=== PATIENT | female | born 1945 | race Caucasian/White ===

== ENCOUNTER 2025-03-17 20:44 | Inpatient (IN) | payer MEDICARE, OTHER, SELFPAY ==
[2025-03-17 15:58] VITALS: BP 125/76
[2025-03-17 17:00] LABS: Hematocrit 31.2 % (37.0-47.0); Hemoglobin 11.1 g/dL (12.0-16.0); Mean Corp Hgb Conc. 35.6 g/dL (33.0-37.0); Mean Corpuscular Volume 92.0 fL (81.0-99.0); Platelet Count 304 10^3/uL (130-400); Red Cell Dist. Width 15.7 % (11.5-14.5)
[2025-03-17 17:19] LABS: ALT (SGPT) 35 U/L (0-35); AST (SGOT) 41 U/L (14-36); Albumin 3.5 g/dl (3.5-5.0); Alkaline Phosphatase 91 U/L (38-126); Blood Urea Nitrogen 14 mg/dl (7-17); Calcium 9.3 mg/dl (8.4-10.2); Carbon Dioxide 24 mmol/L (22-30); Chloride 95 mmol/L (98-107); Glucose 102 mg/dl (70-99); Potassium 5.2 mmol/L (3.5-5.1); Sodium 124 mmol/L (135-145); Total Protein 7.7 g/dl (6.3-8.2); eGFR > 60.00
--- NOTE | 2025-03-17 18:12 | ED.GENMED ---
History of Present Illness
General
Chief Complaint: Seizure
Source: patient and family
Exam Limitations: none
Time Seen by Provider: 03/17/25 18:02
History of Present Illness
History of Present Illness:
80yoF with a history of atrial fibrillation, PE on Xarelto, PMR, temporal arteritis, and diverticulosis presenting with her daughters for evaluation after a possible seizure today. Patient was recently hospitalized at both [facility] and
[facility] at the end of February. She initially started with vomiting on 02/25/25 and was admitted overnight at [facility] for a UTI. She had a fall on 03/05/25 and was seen at [facility]. Imaging was negative for traumatic injuries. She was
tachycardic, hypotensive, and febrile on her arrival. Patient received IV fluids but then became volume overloaded requiring Lasix. Blood cultures were negative. She was having issues with hyponatremia during her hospitalization and sodium was
129 at time of discharge on 03/13/2025. Patient was also leukopenic during her hospital stay and methotrexate was discontinued. She was discharged to a rehab facility. Since discharge, patient has been profoundly fatigued and has been sleeping
throughout the day. She also has been having a worsening tremor. She was on her way to a cardiology appt this afternoon and daughter noticed that she was making a noise. She looked over and patient's eyes were wide open, her back was arched, and
she had a slight facial droop. She was not responding to questioning. Episode lasted <1 minute. No associated incontinence or tongue biting. She is now back to baseline and feeling better. No prior history of seizures/similar episodes. Of
note, patient's smash hand increased her Cardizem dose today from 120 mg to 180 mg.
Phy Exam
General Physical Exam
General Presentation: well appearing and no apparent distress
General Skin: warm and dry
General Habitus: normal
General Mental: alert
ENT Exam
ENT Exam: normocephalic
Cardiovascular Exam
Cardiovascular Exam: irregularly irregular and tachycardia
Pulmonary Exam
Pulmonary Exam: lungs clear, no respiratory distress, no rales, no crackles, no rhonchi and no wheezing
Neurological Exam
Neurological Exam: alert
[place] Coma Scale
Eye Opening: Spontaneous
Verbal Response: Oriented
Motor Response: Obeys Commands
GCS Total Score: 15
Skin Exam
Skin Exam: normal color and warm/dry
Psychiatric Exam
Psychiatric Exam: normal mood/affect
Course
Orders/Labs/Results
Orders:
Orders
03/17/25 Dinner
Regular
At Your Request: Limited, [employer] Required
Fluid Restriction: 1200 mL/day (40 oz)
03/17/25 16:16
Electrocardiogram (*1) Urgent
Reason for Study: Other
Other Reason for Exam: change in mental status
CT Head W/o Iv Contrast Urgent
Comment:
Reason For Exam: unresponsive
03/17/25 16:17
EKG- Treatment ONCE
03/17/25 16:20
Complete Blood Count/With Diff Urgent
Comprehensive Metabolic Panel Urgent
Magnesium Urgent
Comment: ADD ON
Manual Differential Urgent
Serum Osmolality Urgent
Comment: ADD ON
03/17/25 18:45
Cardiac Monitoring- Treatment ONCE
03/17/25 19:14
Osmolality, Random Urine Urgent
Date Specimen was Collected: 03/17/25
Time Specimen was Collected: 19:07
Troponin I Urgent
Urinalysis Reflex To Culture Urgent
Date Specimen was Collected: 03/17/25
Time Specimen was Collected: 19:07
Urine Microscopic Reflex Cult Urgent
Urine Sodium Urgent
Date Specimen was Collected: 03/17/25
Time Specimen was Collected: 19:07
03/17/25 20:15
Add On- LAB Urgent
Tests Added?: serum osmo
Add On- LAB Urgent
Tests Added?: urine sodium, urine osmo
03/17/25 20:20
Admit/Transfer Patient As Directed
Co-Sign Provider:
Level of Care: Inpatient admission
Assign to:: Telemetry
Physician / Group: Garfield De La Paz
Diagnosis: hyponatremia
Reason for Telemetry: Arrhythmia
Date to Stop Telemetry: 03/20/25
Time to Stop Telemetry: 11:00
Reason for Hospitalization: hyponatremia
Expected length of stay greater than two midnights?: Yes
ELOS- Estimated Length of Stay in days: 3
I certify the patient meets the requirements for IP care: Yes
PRN Pain Medication Management As Directed
May give lesser potent ordered pain med per pt: Yes
preference::
Protocol:: Medication orders for pain may be administered in a
manner that supports deferring to patient preference
when the pt is:
- Requesting an ordered lesser potent pain medication.
Least to most potent pain medications are defined
as: acetaminophen < NSAID < tramadol < opioids
(morphine, oxycodone, hydromorphone).
- Requesting a lesser dose of the same medication IF
ORDERED.
- Requesting a less intrusive route of administration
if both routes are prescribed by the provider (PO <
IV).
03/17/25 20:23
Code Status As Directed
Resuscitation Status: Full Code
03/17/25 20:31
Diltiazem Sustained Release [Cardizem Sr] 120 mg PO NOW STA
MethylPREDNISolone PF [Solu-Medrol Pf] 40 mg IV NOW STA
CR Chest - 2 Views Urgent
Comment:
Reason For Exam: reported abnormalty prior hospitalization
03/17/25 20:38
Add On- LAB Urgent
Tests Added?: mag
03/17/25 20:45
0.9% Sodium Chloride 1000 ml [Nss] 1,000 ml IV 60 mls/hr
03/17/25 21:16
Acetaminophen [Tylenol] 650 mg PO Q4HPRN PRN
03/17/25 21:16
CARDIOLOGY CONSULT Routine
Consulting Provider: Peyton Gomez
Was physician already notified: Yes
NEPHROLOGY CONSULT Routine
Consulting Provider: Lupis Enriquez
Was physician already notified: Yes
NEUROLOGY CONSULT Routine
Consulting Provider: Shahid Ross
Was physician already notified: Yes
EEG Routine Routine
Reason for Exam: seizure like activity
MRI Brain [MR Brain Without Contrast] Routine
Comment:
Reason For Exam: change in mental status/seizure activty
Recent pill cam endoscopy?: No
Activity As Directed
Activity Level: As Tolerated
Intake/ Output As Directed
Frequency: Per unit guidelines
Vital Signs As Directed
Frequency: Per unit guidelines
Weight As Directed
Frequency: Once
Comment: on admission
PT Consult [Pt Eval And Treat] Routine
Activity Level: As Tolerated
03/18/25 06:00
Basic Metabolic Panel IN AM
Complete Blood Count/No Diff IN AM
03/18/25 08:00
Diltiazem Extended Release [Cardizem Cd] 180 mg PO DAILY
FOLic ACID [Folvite] 1 mg PO DAILY
Prednisone [Deltasone] 20 mg PO DAILY
Rivaroxaban [Xarelto] 10 mg PO DAILY
03/20/25 08:00
Prednisone [Deltasone] 2.5 mg PO DAILY
03/20/25 11:00
DC Protocol for Telemetry ONCE
Abnormal Lab Results
03/17/25 03/17/25
16:20 19:14
RBC 3.39 L 10^6/uL
(4.20-5.40)
Hgb 11.1 L g/dL
(12.0-16.0)
Hct 31.2 L %
(37.0-47.0)
MCH 32.7 H pg
(27.0-31.0)
RDW 15.7 H %
(11.5-14.5)
Segmented Neutrophils 41 L %
(42-75)
Sodium 124 L mmol/L
(135-145)
Potassium 5.2 H mmol/L
(3.5-5.1)
Chloride 95 L mmol/L
(98-107)
Glucose 102 H mg/dl
(70-99)
Serum Osmolality 266 L mOsm/kg
(275-300)
AST 41 H U/L
(14-36)
Ur Occult Blood Reflex 1+ A
(Negative)
Urine RBC 3-6 A /HPF
(0-2)
Urine Bacteria (Reflex) Few A
(Negative)
Urine Osmolality 214 L mOsm/kg
(300-900)
Urine Albumin (Reflex) 2+ A
(Neg - Trace)
03/17/25 16:20
03/17/25 16:20
Vital Signs
Initial and Last Documented VS:
Initial Vital Signs
Temp Pulse Resp BP Pulse Ox
99.0 F 108 16 125/76 97
03/17/25 15:58 03/17/25 15:58 03/17/25 15:58 03/17/25 15:58 03/17/25 15:58
Last Documented Vital Signs
Temp Pulse Resp BP Pulse Ox
98.1 F 105 18 139/93 96
03/17/25 21:15 03/17/25 21:15 03/17/25 21:15 03/17/25 21:15 03/17/25 21:15
MDM/Problems Addressed
Differential Diagnosis Includes:
80yoF presenting after a possible seizure this afternoon. Episode lasted 1 minute with unresponsiveness and back arched. Now back to baseline. C/o fatigue. Multiple recent hospitalizations. HR 108 on arrival. Remainder of vitals stable. She is well
appearing in no distress. She is awake, alert, with a GCS of 15. Differential diagnosis includes but is not limited to: Seizure, syncope, UTI
Workup initiated in triage. Sodium is 124. Family does report that she had issues with hyponatremia during her recent hospitalization at [place]. Sodium was reportedly 129 4 days ago. Renal function stable. CT head negative for acute findings.
EKG shows afib with RVR. HRs in the 110s during exam, no indication for IV rate control at this time. UA and urine studies added. Will hold off on IV fluids as she required IV diuresis during her recent hospitalization. Will admit for neurology
evaluation and further management.
*Pulse Oximetry
SaO2: 97
Oxygen Mode of Delivery: Room air
Patient hypoxic: no (97%)
*EKG
Interpreted by ED Provider?: Yes
EKG Intrepretation Date: 03/17/25
Heart Rate: 115
Rate: tachycardiac
Rhythm: a-fib
[place]: left axis deviation
Interval: normal interval
QRS Pattern: normal QRS
Ischemia: no ischemia
*Critical Care Note
Total Time (30-74mins, 75-104mins- exclusive of procedures): Not Applicable
ED Attending Note
-
Portions of this chart may have been created with voice recognition software.� Occasional wrong word or��sound alike� substitutions may have occurred due to the inherent limitations of voice recognition software.
Discharge Plan
Departure
Patient Disposition: Admit
Date of Disposition: 03/17/25
Time of Disposition: 19:17
Presentation/result/management discussed w/ accepting MD/DO: Hospitalist
Discharge Problem:
Seizure-like activity, Hyponatremia
Interventions
Interventions:
*Risk Screen - Suicide Last Done: 03/17/25 16:01
*General Assessment Last Done: 03/17/25 16:01
*Neglect/Abuse Screening Last Done: 03/17/25 19:41
*ED COVID-19 Vaccine History Last Done: 03/17/25 16:01
*Nursing Disposition Last Done: 03/17/25 20:49
ED- Cardiac Assessment Last Done: 03/17/25 19:41
ED- Neurological Assessment Last Done: 03/17/25 19:41
ED- Pulmonary Assessment Last Done: 03/17/25 19:41
Discharge Date and Time
Discharge Date/Time: 03/17/25 21:38
[2025-03-17 19:02] VITALS: BP 144/88
[2025-03-17 19:19] LABS: Absolute Neutrophils -Man Diff 2.2 10^3/uL (1.4-6.5); Platelets Checked Yes
[2025-03-17 19:20] LABS: Normal RBC Morphology Yes; Total Cells Counted 100
--- NOTE | 2025-03-17 19:26 | HPS.HSE ---
Family Physician
-
Family Physician: Kevin Jones
Chief Complaint
-
Loss of consciousness and seizure-like activity
History of Present Illness
86-year-old female with history of A-fib and anticoagulated on Xarelto, hypertension, polymyalgia rheumatica, temporal arthritis on chronic methotrexate and steroid, few days ago discharged from the [facility] to rehab, today one of her
daughter picked her up from the rehab to take her to her pharmacy associate appointment on the way she made a noise in the daughter when she looked at her she was stiff and her eyes rolling backward and her mouth was open drifted to the left and some
foaming coming out but she did not with nurse any tonic-clonic activities. This is last couple of minutes she got out of it that she was back to normal and happened again. According to the daughter immediately she was not confused and she was
oriented x 3 after the events.
Patient has no recollection of the event but did not experience any chest pain or shortness of breath or nausea or vomiting or palpitation admit her vision or blurry before the event.
No weakness or numbness in extremity ,
According to the patient and the daughter she has not been sleeping at all lately and she is very weak loudly and lethargic and according to one of the daughter a few days ago while living talking to her she look like dozed off and they were not
sure if she passed out but she was able to sleep. She has been taking melatonin without any relief.
In the ER she was in A-fib with mild RVR, cardiology increased her dose of Cardizem from 120-180 earlier today. Also according to the daughter she is having shuffling gait and tremor and cogwheel rigidity were noticed.
She was admitted recently as mentioned in [place] after she had a mechanical fall and back pain also for methotrexate toxicity and she did not get her methotrexate last couple of weeks.
She is hyponatremic her sodium was 124 but according to the daughter the whole time she was in the hospital her sodium was around 125, she got fluids and followed by [facility] as she became like fluid overloaded and her sodium improved to 126 and 129 at
the time of discharge. She had a urine osmolarity over there was 495 and her serum osmolarity was 270. She had a chest x-ray and CAT scan which showed multiple nodules in the lung including some motion was cavitating and around 2.2 cm x 2.2 with
mediastinal lymphadenopathy overall can concerning for malignancy and SIADH.
Patient is daughter have portal all of these were reviewed by me personally..
Medical History
Past Medical History
Past Medical History: Reports Other
Additional Past Medical History:
Past medical history:
A-fib
Hypertension tension
Polymyalgia rheumatica
Temporal arteritis
Chronic steroid-dependent
Peripheral neuropathy
Surgical history:
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
Social history: Lives independently alone until recent hospitalization few days ago she was discharged to rehab, no smoking she quit when she was 28 while occasionally drinks alcohol.
Family history: Reviewed and noncontributory
Past Surgical History: Reports Other
Social History
Unable to obtain full social history at this time due to: Other
Family History
Family History: Other
Allergies / Home Medications
Allergies reflects when Allergies were last updated in [facility].
Home Medications with original date entered in [facility]
Allergy/Medication List:
Allergies
Allergy/AdvReac Type Severity Reaction Status Date / Time
cortisone Allergy Unknown Verified 03/17/25 16:14
meperidine (From Demerol) Allergy Unknown Verified 03/17/25 16:14
Allergies
Allergy/AdvReac Type Severity Reaction Status Date / Time
cortisone Allergy Unknown Verified 03/17/25 16:14
meperidine (From Demerol) Allergy Unknown Verified 03/17/25 16:14
Home Medications
acetaminophen 650 mg tablet,extended release 650 mg PO Q12H PRN pain 03/17/25
calcium 500 mg (as carbonate)-vitamin D3 3.125 mcg (125 unit) tablet 1 tab PO BID 03/17/25
diltiazem HCl 120 mg tablet,extended release 24 hr 120 mg PO DAILY 03/17/25
folic acid 1 mg tablet 1 mg PO DAILY 03/17/25
furosemide 20 mg tablet 20 mg PO DAILY 03/17/25
gabapentin 100 mg capsule 100 mg PO BID 03/17/25
methotrexate sodium (PF) 25 mg/mL injection solution 25 mg SC WEEKLY 03/17/25
lsledthtqttq-Jm-sgfj-minerals 18 mg-0.4 mg tablet 1 tab PO DAILY 03/17/25
prednisone 2.5 mg tablet 2.5 mg PO DAILY 03/17/25
rivaroxaban 10 mg tablet (Xarelto) 10 mg PO DAILY 03/17/25
Review of Systems
-
A 12 point ROS was completed and negative except as noted: Yes
Physical Exam
Vital Signs
Vital Signs
Temp Pulse Resp BP Pulse Ox
99.0 F 108 16 125/76 97
03/17/25 15:58 03/17/25 15:58 03/17/25 15:58 03/17/25 15:58 03/17/25 18:12
Physical exam:
General: Tired looking but awake, lethargic but oriented x3, not in distress and holds appropriate conversation.
HEENT: No active discharge, ecchymosis or bruising, moist lips, tongue and mucous membrane.
Eyes: No discharge or red conjunctiva, no nystagmus, pupils are reactive and equal
Neck:Supple, no JVD no bruit no goiter.
Respiratory: Normal AP contour and diameter, normal chest wall movement, normal respiratory effort, no respiratory distress,
Lungs: Good air entry bilaterally, no wheezing or rhonchi, no rales or crackles
Heart: S1, S2 irregular irregular, tachycardic, no added sound.
Gastrointestinal: Positive bowel sounds, soft, nontender, no guarding or rigidity or organomegaly
Musculoskeletal: Cogwheel rigidity appreciated, no chest wall abnormality or tenderness. All joints and extremities have good range of motion of both shoulders because of chronic pain and arthritis,, no muscle tenderness or any joint swelling or
tenderness.
Extremities: No pitting edema, good peripheral pulses, good range of motion
Skin: Warm and dry, no ulceration, normal color.
Neurological: Upper extremities fine tremor appreciated, cogwheel rigidity of both arm appreciated awake, oriented x3, speech clear and comprehensive, good muscle tone, moves extremities freely
Psychiatric: Normal mood, normal thought and judgment, normal affect,
Physical Exam
General: Other
Laboratory Results
-
03/17/25 16:20
03/17/25 16:20
Laboratory Results
Total Bilirubin 0.8 mg/dl (0.2-1.3) 03/17/25 16:20
AST 41 U/L (14-36) H 03/17/25 16:20
ALT 35 U/L (0-35) 03/17/25 16:20
Alkaline Phosphatase 91 U/L (38-126) 03/17/25 16:20
CT brain: Showed no acute abnormalities
Extensive workup done in the last few days and [facility] reviewed by me as above in HPI
Data Reviewed
-
CT Scan: Image Personally Visualized and interpreted and Discussed with Patient
Lab Data: Labs Reviewed by me and Discussed with Patient
Old Records: Reviewed
Impression/Plan
-
IMPRESSION:
86-year-old female with history of A-fib, brought to the hospital per recommendation of the funds development director today after had couple episode of loss of consciousness and some body stiffening but no tonic-clonic activity witnessed by daughter. Seizure
can be a possibility while tacky bradycardia arrhythmia with A-fib need to be considered regarding cerebral hypoperfusion, also she is hyponatremic sodium is 124 but she has been low around 125-129 lately.
Loss of consciousness and seizure-like activity:
- Seizure need to be considered but she was not postictal she is right away woke up and back to her baseline, therefore cardiac arrhythmia especially with known history of A-fib and she was mildly tachycardic need to be consider.
-For now seizure precaution
- Cardiac monitoring
- Cardiology and neurology consult
- Get EEG and MRI of brain
- May need to obtain records from [place] including recent echo
A-fib with RVR:
- Possibly related to dehydration as she looks dry and dehydrated.
- IV fluid cautiously with normal saline around 60 mL/h
- She is on Cardizem 120 daily and her pharmacy associate increase it to 180 but will give another dose of 120 now to better control the heart rate is running around 1 teens.
- Check TSH
- Potassium was 5.3 but likely related to dehydration and volume contraction.
- Recheck labs including magnesium
- Continue Xarelto she is on 10 mg
Hyponatremia:
- Skin is somewhat chronic but we do not have any record better record her daughter have on patient's portal always sodium has been 125-129.
- Medication could be a possibility including diuretic, benzodiazepine and methotrexate
- While my main concern and SIADH from these pulmonary lesion including some of them is large around 2.2 cm can concerning for malignancy as explained to the patient daughter in detail especially with lymphadenopathy.
Patient have her own oncologist in outpatient they do not come here
- We may need to get records of chest CAT scan which were done few days ago
- For now she looks dry and dehydrated we will give her some IV fluid while we recheck in urine and sodium, if not improving then may consider fluid restriction further especially with concern of SIADH and high urine osmolarity and low serum
osmolarity and having an as mentioned above his urine was 495 and serum osmolality was 270.
Hold Lasix for now
Multiple pulmonary lesion and nodule:
- As discussed with the daughter, concerning for malignancy specially with lymphadenopathy, she is a former smoker but quit many years ago when she was 28
- They already followed up with oncologist today as an outpatient no plan to repeated
Chronic steroid-dependent:
- On low-dose of prednisone 25 mg for quite some time would like to give her higher doses for couple a day as a stressor doses for now give a dose of Solu-Medrol 40 then we will increase her prednisone to 20 starting tomorrow for couple of days then
back to her 2.5
Temporal arteritis:
- Chronic she is on methotrexate and prednisone as above methotrexate been on hold for the last couple of weeks.
Concern for Parkinson disease:
- Patient experiencing tremor, shuffling gait and has cogwheel rigidity
- Neurology consult
Hyperkalemia:
- Potassium 5.3, possibly related to dehydration as she is not on any medication increasing potassium.
IV fluid
Recheck
All discussed with the patient and the 2 daughters at the bedside in detail and expressed understanding all the question answered
CODE STATUS full code
DVT prophylaxis Xarelto
Patient's records here as well as navigating all reviewed by me personally
[2025-03-17 19:38] LABS: Urine Character Clear (Clear)
[2025-03-17 19:53] LABS: Urine Squamous Cell 0-2 /LPF (Few)
[2025-03-17 19:54] LABS: Urine White Cell 0-2 /HPF (0-5)
[2025-03-17 20:02] LABS: Troponin I < 0.012 ng/ml
[2025-03-17 20:57] LABS: Magnesium 1.9 mg/dl (1.6-2.3)
[2025-03-17 21:15] VITALS: BP 139/93; BMI 22.4
[2025-03-17] MEDS: SOLU-MEDROL PF 40 MG IV (22:08)
[2025-03-17] MEDS: NSS 1000 IV (22:08)
[2025-03-17] MEDS: XANAX 0.25 MG PO (22:11)
[2025-03-17] MEDS: CARDIZEM SR 120 MG PO (22:20)
[2025-03-17 22:28] VITALS: BMI 22.4
[2025-03-17 23:00] VITALS: BP 150/80
[2025-03-18 03:00] VITALS: BP 141/72
[2025-03-18 07:13] VITALS: BP 114/66
--- NOTE | 2025-03-18 07:35 | CON.CAR ---
Addendum entered and electronically signed by Alva Bates DO 03/18/25 18:57:
I saw and examined the patient.
The Barrel Lathe Operator Outside's note was reviewed and I agree with the note.
Comment: Patient was seen and examined with 2 daughters present. Agree with HPI and plan as documented in cardiac PA's note. Patient is an 80-year-old female with past medical history significant for paroxysmal atrial fibrillation (~3 years) who
follows with a member of the legislative council Dr. Drew at [facility] and a Hypercoagulable state with several mutations (unknown)on chronic anticoagulation on Xarelto and remote history of pulmonary embolism. She states over a year ago she had recurrent significant
nosebleeds and was seen by ENT. Discussions between ENT, her senior business process analyst and member of the legislative council led to the reduction of Xarelto from 20 mg to 10 mg daily. Patient and family think that at the time of this reduction she was in sinus rhythm. She has no
history of stroke/TIA. She has no history of known coronary artery disease or heart failure. 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 She also has polymyalgia rheumatica,
temporal arteritis on chronic methotrexate and steroids who was recently admitted to [facility] for mechanical fall and back pain. She was hyponatremia (125-129) and concern for methotrexate toxicity. She was discharged to rehab.
Patient and her daughter were on their way to her outpatient cardiology appointment when her daughter heard a noise and looked over and saw her mother stiff with back arched and eyes rolling to one side. There was questionable facial droop and
foaming from the mouth. There was no obvious tonic-clonic seizure activity. Patient was unresponsive for several minutes then went back to baseline. Patient had a second episode once again witnessed by daughter. They did go to outpatient
cardiology office and from there to [facility] ED. In the emergency room sodium found to be 124; they deny that she follows with an outpatient authorization specialist. She was also found to be in atrial fibrillation with accelerated ventricular
response. She was given an extra 120 mg of Cardizem p.o. in ED. Troponin was undetectable. Chest x-ray showed small left upper lobe opacity could not exclude pneumonia and tiny bilateral pleural effusions. She was given stress dose of steroids.
GEN: No distress, awake, Ox3
HEENT: mmm, MAKAH
LUNGS: CTA, no wheezes/rales. Increased thoracic kyphosis
CV: Irregularly irregular. Positive S1-S2 2/6 SM
ABD: soft, BS+, NT/ND
EXT: No edema
Plan:
PAF currently in rate controlled atrial fibrillation
- Patient is asymptomatic and has at least a several year history of PAF
- Will continue rate control strategy at this time
- Continue Cardizem CD 180 mg once daily
- We discussed anticoagulation for stroke risk reduction in the setting of PAF as well as how it plays into her hypercoagulable state and prior history of nosebleeds. Through shared decision making patient is agreeable to increasing Xarelto to 20
mg once daily.
Unresponsiveness in the setting of hyponatremia and concern for seizure
- Neurology consulted. MRI of the brain without acute stroke. EEG planned
- Nephrology consulted; currently on fluid restriction
History of hypercoagulable state with several genetic mutations and prior history of DVT/PE. Patient has an outpatient senior business process analyst. Continue oral anticoagulation without interruption.
Records from patient's outpatient member of the legislative council have been requested
Original Note:
Consultation
Consultation Request
Date/Time Consultation Requested: 03/18/2025
Date/Time Consultation Performed:
Requesting Provider: Dr. De La Paz
Performing Provider: Viv De Los Santos PA-C for Dr. Bates
Reason for Consultation: Atrial fibrillation, LOC
Medical History
-
History of Present Illness:
Patient is an 80-year-old female with past medical history significant for paroxysmal atrial fibrillation (unknown chronicity), chronic anticoagulation on Xarelto, hypertension, polymyalgia rheumatica, temporal arteritis on chronic methotrexate and
steroids who was recently admitted to [facility] for mechanical fall and back pain. She was hyponatremia (125-129) and concern for methotrexate toxicity which has been on hold. She was discharged to rehab. Patient and her daughter
were on their way to her outpatient cardiology appointment when her daughter heard a noise and looked over and saw her mother stiff with back arched and eyes rolling to one side. There was questionable facial droop and foaming from the mouth.
There was no obvious tonic-clonic seizure activity. Patient was unresponsive for several minutes then went back to baseline. Patient had a second episode once again witnessed by daughter. According to daughter patient has not been sleeping well
and has been getting increasingly weaker and lethargic. They did go to outpatient cardiology office who increased diltiazem from 120 mg to 180 mg given her heart rates were not adequately controlled in atrial fibrillation but patient has not
increased dose given she came to the hospital.
On presentation to [facility] patient found to be in atrial fibrillation with accelerated ventricular response. She was given an extra 120 mg of Cardizem p.o. in ED. potassium was found to be 5.2 with sodium of 124. Troponin was undetectable. Chest
x-ray showed small left upper lobe opacity could not exclude pneumonia and tiny bilateral pleural effusions. She was given stress dose of steroids.
PMH:
Paroxysmal atrial fibrillation
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
Mitral regurgitation
PVCs/PACs
Hypertension
Polymyalgia rheumatica
Temporal arteritis September 2017
Chronic steroid-dependent
Peripheral neuropathy
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
Lung nodules
Past Medical History
Past Medical History: Other (See HPI)
Past Surgical History: Other (Left side nephrectomy (donated to her son))
Social History
Tobacco: Former Smoker (remote history, quit in her 30's)
Alcohol: Occasional
Drug: None
Living: Alone (Lives independently until recently when she was hospitalized and discharged to rehab)
Family History
Family History: Cancer (mother) and Hypertension
Allergies / Home Medications
Allergy/AdvReac Type Severity Reaction Status Date / Time
cortisone Allergy Unknown Verified 03/17/25 16:14
meperidine (From Demerol) Allergy Unknown Verified 03/17/25 16:14
�Medication �Instructions �Recorded �Confirmed �Type
acetaminophen 650 mg 650 mg PO Q12H PRN pain 03/17/25 03/17/25 History
tablet,extended release
calcium 500 mg (as 1 tab PO BID Supplement 03/17/25 03/17/25 History
carbonate)-vitamin D3 3.125 mcg
(125 unit) tablet
diltiazem HCl 120 mg 120 mg PO DAILY Heart 03/17/25 03/17/25 History
tablet,extended release 24 hr Disease/Condition
folic acid 1 mg tablet 1 mg PO DAILY Supplement 03/17/25 03/17/25 History
furosemide 20 mg tablet 20 mg PO DAILY Fluid 03/17/25 03/17/25 History
Retention/Swelling
gabapentin 100 mg capsule 100 mg PO BID neuropathic pain 03/17/25 03/17/25 History
methotrexate sodium (PF) 25 mg/mL 25 mg SC WEEKLY chemo 03/17/25 03/17/25 History
injection solution
bgznvszdmfsl-My-ghwe-minerals 18 1 tab PO DAILY Supplement 03/17/25 03/17/25 History
mg-0.4 mg tablet
prednisone 2.5 mg tablet 2.5 mg PO DAILY inflammation 03/17/25 03/17/25 History
rivaroxaban 10 mg tablet (Xarelto) 10 mg PO DAILY Blood Clot 03/17/25 03/17/25 History
Prevention/Tx
Review of Systems
-
History Source: Patient
All other systems: Negative unless noted
Physical Exam
Vital Signs
Temp Pulse Resp BP Pulse Ox
98.3 F 97 20 141/72 97
03/18/25 03:00 03/18/25 03:00 03/18/25 03:00 03/18/25 03:00 03/18/25 03:00
GEN: No distress, awake, Ox3
HEENT: supple, anicteric, mmm
LUNGS: CTA, no wheezes/rales
CV: Reg, S1/S2, no murmur, rub or gallop
ABD: soft, BS+, NT/ND
EXT: No edema clubbing or cyanosis
NEURO: Gross non-focal
SKIN: No rash, warm, dry, pink
Lab Results
Troponin I < 0.012 ng/ml 03/17/25 19:14
Impression / Plan
-
Family Physician: Kevin Jones
Grid Inspector: Stanley Drew, [facility]
Impression:
Presented 03/17/2025 with episodes of unresponsiveness/loss of consciousness
Possible seizure
Paroxysmal atrial fibrillation
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
Mitral regurgitation
PVCs/PACs
Hypertension
Polymyalgia rheumatica
Temporal arteritis September 2017
Chronic steroid-dependent
Peripheral neuropathy
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
Lung nodules
Echo November 2023 ([facility]): Normal ejection fraction with mild MR and TR.
Echo 03/08/2025 ([facility]): EF 70 to 75%, hyperdynamic LV systolic function with out segmental regional wall motion abnormalities. Moderate MR, mild TR with PAP 27 mmHg.
Carotid duplex November 2024 with mild disease bilaterally
Outpatient monitor 11/2024: sinus rhythm with PACs (2.74%), 4 beat run of SVT. No A-fib seen
Plan:
Presented 03/17/2025 with witnessed episodes of unresponsiveness/loss of consciousness in setting of hyponatremia concerning for seizure versus arrhythmia versus stroke
- MRI and EEG have been ordered and neurology following.
Paroxysmal atrial fibrillation with accelerated ventricular response.
- Patient did see her outpatient member of the legislative council 03/17/2025 (same day as admission) with increase of diltiazem to 180 mg for attempt at rate control as she was found to be in atrial fibrillation with PVCs at that office visit on my personal review of
EKG in his office. However patient was admitted prior to increase in dose. She did receive an extra 120 mg in the ED.
-Per review of telemetry patient remains in atrial fibrillation with occasional accelerated ventricular response. Occasional PVCs and one 3 beat run of NSVT. Attempt rate control with 180 mg (dose increased 03/18). Can uptitrate as blood pressure
allows if heart rate remains poorly controlled
-Continue to monitor on telemetry to exclude additional arrhythmias and trend heart rate with increase diltiazem.
- Hold on echocardiogram as patient had echo 03/08/2025 which showed hyperdynamic LV with moderate MR.
- Patient on Xarelto 10 mg as outpatient. She has history of DVT and PE. Given patient now in atrial fibrillation would increase to A-fib dosing to reduce risk of cardioembolic event. Creatinine clearance of 71 mL/min. Proper dosing would be 20
mg daily Hemoglobin 11.1 on admission.
Patient has had recent hyponatremia (125-129) while at outside hospital. NA 124 on admission to [facility], repeat pending with ongoing attempts at correction. Unclear if this could be contributing to possible seizure activity
Chronic heart failure with preserved ejection fraction. Patient does not appear to be volume overloaded on examination. Lasix currently on hold.
Outpatient cardiology records received from Dr. Odin Drew and reviewed with above history reflecting review
HPI 03/18/2025:
Patient is an 80-year-old female with past medical history significant for paroxysmal atrial fibrillation (unknown chronicity), chronic anticoagulation on Xarelto, hypertension, polymyalgia rheumatica, temporal arteritis on chronic methotrexate and
steroids who was recently admitted to [facility] for mechanical fall and back pain. She was hyponatremia (125-129) and concern for methotrexate toxicity which has been on hold. She was discharged to rehab. Patient and her daughter
were on their way to her outpatient cardiology appointment when her daughter heard a noise and looked over and saw her mother stiff with back arched and eyes rolling to one side. There was questionable facial droop and foaming from the mouth.
There was no obvious tonic-clonic seizure activity. Patient was unresponsive for several minutes then went back to baseline. Patient had a second episode once again witnessed by daughter. According to daughter patient has not been sleeping well
and has been getting increasingly weaker and lethargic. They did go to outpatient cardiology office who increased diltiazem from 120 mg to 180 mg given her heart rates were not adequately controlled in atrial fibrillation but patient has not
increased dose given she came to the hospital.
On presentation to [facility] patient found to be in atrial fibrillation with accelerated ventricular response. She was given an extra 120 mg of Cardizem p.o. in ED. potassium was found to be 5.2 with sodium of 124. Troponin was undetectable. Chest
x-ray showed small left upper lobe opacity could not exclude pneumonia and tiny bilateral pleural effusions. She was given stress dose of steroids.
Data Reviewed
-
EKG: Report Reviewed by me, Discussed with Physician, Discussed with Nurse and Discussed with Patient
Radiology: Report Reviewed by me, Discussed with Physician, Discussed with Nurse and Discussed with Patient
Labs: Labs Reviewed by me, Discussed with Physician, Discussed with Nurse and Discussed with Patient
Old Records: Reviewed
[2025-03-18] MEDS: CARDIZEM CD 180 MG PO (07:51)
[2025-03-18] MEDS: XARELTO 10 MG PO ×2 (07:51→17:12)
[2025-03-18] MEDS: DELTASONE 20 MG PO (07:51)
[2025-03-18] MEDS: FOLVITE 1 MG PO (07:51)
--- NOTE | 2025-03-18 08:32 | CON.NEURO4 ---
Addendum entered and electronically signed by Shahid Ross MD 03/18/25 10:04:
Studies reviewed.
I have personally examined the patient. I reviewed and agree with the NIGHT SHIFT MANAGER's Note.
My addenda:
Awake, alert, interactive. No acute distress.
Speech intact.
Follows 2-step requests w/o difficulty. No tremor.
Extra-ocular movements grossly intact.
Facial movements full and symmetric. Hearing intact to normal conversational volume.
Normal UE movements bilaterally.
Neck: full ROM.
Chest: no dyspnea
Heart: no JVD
Ext: (-) Clubbing, (-) Cyanosis, (-) Edema
IMPRESSIONS/RECOMMENDATIONS:
Abrupt onset of generalized tonic-clonic seizure most likely provoked by hyponatremia, potentially also by hypotension
If the patient develops a second event while not hyponatremic, would initiate antiseizure medication
Patient's voice is hypophonic and the patient is experiencing tremor. Unclear if this represents an unmasked parkinsonism or other primary neurological disorder
EEG and MRI of brain with contrast are pending
D/W patient
Will continue to follow as needed.
Original Note:
Consultation - Neurology 4
-
CONSULTING PHYSICIAN: Shahid Ross MD
REFERRING PHYSICIAN: Hospitalists/GABINO Santana
DICTATED BY: GABINO Alvarez
DATE/TIME OF REQUEST: 03/17/25
DATE/TIME OF CONSULTATION: 03/18/25
Reason for Consultation: Seizure
History of Present Illness:
This is an 80-year-old right-handed female who has presented to the hospital with report of seizure. Patient reports that she was recently hospitalized off and on for an extended period at [facility] for a urinary tract
infection, volume overload, and hyponatremia. On discharge from the hospital her sodium level was 129. Since discharge, she notes that she has been very fatigued. She reports that yesterday (03/17/25), she was riding in the car on her way to an
appointment looking out the car window, when she started seeing splotches of various colors. She then notes that she lost consciousness. Her daughter who was driving reports that her body went rigid, her head was tilted diagonally to the right, eyes
were open, she was foaming at the mouth, and had whole body shaking. This lasted a few minutes before spontaneously resolving. She denies any incontinence of bowel/bladder or tongue biting. On arrival in the ER her sodium level was 124. CT head was
obtained and is negative for any acute abnormalities. Patient reports that today (03/18/25) she feels back to her baseline except for feeling weak. She feels that her strength is returning but she has needed to use a rolling walker for ambulation.
She denies any headache, dizziness, vision changes, swallowing difficulty, and focal numbness. She does note that starting about one month ago she started having a tremor in bilateral hands and her voice became hypophonic.
Past Medical History: Afib (rivaroxaban), pulmonary embolism, HTN, polymyalgia rheumatica (methotrexate- on hold), temporal arteritis, chronic steroid use, peripheral neuropathy
Surgical History: L nephrectomy (donated to son)
Family History: Reviewed and noncontributory.
Social History: Former remote smoker
Allergies: Cortisone, meperidine.
Home Medications: See below.
Review of Symptoms:
Patient denies any fever, headache, chest pain, shortness of breath, GI or symptoms.
�Per the HPI.�All systems are reviewed negative except above.
Physical Exam:
The patient is afebrile, abdomen is nondistended, breathing is unlabored, skin is warm and dry, no edema. +High arches bilateral feet. No tongue/lip lacerations.
Neurologic Examination:
The patient is awake, alert and oriented x 3. She is able to follow commands and answer questions appropriately. There is no aphasia or dysarthria. Speech is moderately hypophonic. On cranial nerve assessment, pupils are 3 mm bilateral, round and
reactive to light and accommodation. Visual azar are full. Extraocular movements are intact. Facial sensations are intact and bilaterally symmetrical, there is no facial asymmetry. Hearing is diminished bilaterally to normal conversation volume.
Tongue palate and uvula are midline. Sternocleidomastoid strengths are full bilaterally. Motor strengths are 5/5 bilateral upper and lower extremities on medical research [place] scale. There is no drift. Medium amplitude semi rhythmic tremor noted
in distal bilateral upper extremities at rest and with exertion. Deep tendon reflexes are 2+ bilateral upper and 1+ bilateral lower extremities and Babinski is absent bilaterally. There was no extinction noted on double simultaneous stimulation.
Coordination is intact by finger to nose bilaterally.
Lab Results: See below.
Neuro Imaging:
1. CT Head 03/17/25: No acute intracranial abnormalities. Findings compatible with diffuse cortical atrophy with nonspecific white matter changes as described above.
Differentials for the patient's presentation include:
1. New onset seizure; etiology is likely a provoked event in the setting of hyponatremia.
2. One month history of noticeable bilateral upper extremity tremor and hypophonia. Etiology uncertain, possibly a metabolic disturbance, cannot entirely exclude parkinson's disease.
Patient has the following risk factors for their symptoms: hyponatremia, age
Recommendations:
-MRI brain with and w/o contrast pending.
-Routine EEG pending.
-Sodium level goal 135-145.
-Would hold off on starting an antiseizure medication at this time given this is likely a provoked event.
-No driving, required to report this event to [facility], discussed this with patient.
-Continue home rivaroxaban.
-Start thiamine 100mg daily.
-PT/OT evaluations.
-Consideration for outpatient testing to rule out Parkinson's disease.
Discussed patient care with: Dr. Ross, the patient
Vital Signs and Labs
-
Vital Signs and Labs:
Vital Signs
Temp Pulse Resp BP Pulse Ox
97.6 F 82 18 119/66 96
03/18/25 07:13 03/18/25 07:51 03/18/25 07:13 03/18/25 07:51 03/18/25 07:13
Sodium 124 mmol/L (135-145) L 03/17/25 16:20
Potassium 5.2 mmol/L (3.5-5.1) H 03/17/25 16:20
BUN 14 mg/dl (7-17) 03/17/25 16:20
Glucose 102 mg/dl (70-99) H 03/17/25 16:20
Calcium 9.3 mg/dl (8.4-10.2) 03/17/25 16:20
Medications
-
Active Medications
Generic Name Dose Route Start Last Admin
Trade Name Freq PRN Reason Stop Dose Admin
Acetaminophen 650 mg 03/17/25 21:16
Acetaminophen 325 Mg Tablet PO 04/14/25 21:15
Q4HPRN PRN
mild pain/HILARIO/temp> 100.4F
Diltiazem HCl 180 mg 03/18/25 08:00 03/18/25 07:51
Diltiazem 180 Mg Extended Release (24 H) Capsule PO 04/15/25 07:59 180 mg
DAILY LOU Administration
Folic Acid 1 mg 03/18/25 08:00 03/18/25 07:51
Folic Acid 1 Mg Tablet PO 04/15/25 07:59 1 mg
DAILY LOU Administration
Sodium Chloride 1,000 mls @ 60 mls/hr 03/17/25 20:45 03/17/25 22:08
Nss IV 03/18/25 13:24 1,000 mls
.[id number] LOU Administration
Prednisone 2.5 mg 03/20/25 08:00
Prednisone 2.5 Mg Tablet PO 04/17/25 07:59
DAILY LOU
Prednisone 20 mg 03/18/25 08:00 03/18/25 07:51
Prednisone 20 Mg Tablet PO 03/19/25 08:01 20 mg
DAILY LOU Administration
Rivaroxaban 10 mg 03/18/25 08:00 03/18/25 07:51
Rivaroxaban 10 Mg Tablet PO 04/15/25 07:59 10 mg
DAILY LOU Administration
Sodium Chloride 0 flush 03/17/25 21:00
Sodium Chloride 0.9% (Flush) Syringe IV 04/14/25 20:59
PER PROTOCOL LOU
Thiamine HCl 100 mg 03/18/25 09:00
Thiamine 100 Mg Tablet PO 03/20/25 08:01
DAILY LOU
Home Medications
�Medication �Instructions �Recorded
acetaminophen 650 mg 650 mg PO Q12H PRN pain 03/17/25
tablet,extended release
calcium 500 mg (as 1 tab PO BID Supplement 03/17/25
carbonate)-vitamin D3 3.125 mcg
(125 unit) tablet
diltiazem HCl 120 mg 120 mg PO DAILY Heart 03/17/25
tablet,extended release 24 hr Disease/Condition
folic acid 1 mg tablet 1 mg PO DAILY Supplement 03/17/25
furosemide 20 mg tablet 20 mg PO DAILY Fluid 03/17/25
Retention/Swelling
gabapentin 100 mg capsule 100 mg PO BID neuropathic pain 03/17/25
methotrexate sodium (PF) 25 mg/mL 25 mg SC WEEKLY chemo 03/17/25
injection solution
nvarizzqxsjb-Qc-qbdw-minerals 18 1 tab PO DAILY Supplement 03/17/25
mg-0.4 mg tablet
prednisone 2.5 mg tablet 2.5 mg PO DAILY inflammation 03/17/25
rivaroxaban 10 mg tablet (Xarelto) 10 mg PO DAILY Blood Clot 03/17/25
Prevention/Tx
--- NOTE | 2025-03-18 09:33 | W.PN.HOSP.TC ---
Today's Communication/Plan
-
see bold
Assessment / Plan
Assessment / Plan
HPI: 86-year-old female with history of A-fib, brought to the hospital per recommendation of the budget technician today after had couple episode of loss of consciousness and some body stiffening but no tonic-clonic activity witnessed by daughter.
Seizure can be a possibility while tacky bradycardia arrhythmia with A-fib need to be considered regarding cerebral hypoperfusion, also she is hyponatremic sodium is 124 but she has been low around 125-129 lately.
Loss of consciousness and seizure-like activity:
- Seizure need to be considered but she was not postictal she is right away woke up and back to her baseline, therefore cardiac arrhythmia especially with known history of A-fib and she was mildly tachycardic need to be consider.
- Cardiology neurology following, brain MRI negative for intracranial abnormality
- EEG requested. Obtain records from [place]
- Monitor
A-fib with RVR:
- TSH normal
- Appreciate cardiology input, continue increased dose of Cardizem 180 mg daily, uptitrate as needed
- Continue Xarelto, dose increased to 20 mg every afternoon
Hyponatremia:
- Per daughter, this is new, but patient's portal sodium has been 125-129.
- Appreciate nephrology input, who recommends high-dose steroids temporarily, she is getting prednisone 22.5 mg as opposed to her usual 2.5 mg
- Sodium 127 today, was 124 upon admission
- Fluid restriction, repeat urine osmolality tomorrow, trend Na
Multiple pulmonary lesion and nodule:
- As discussed with the daughter, concerning for malignancy specially with lymphadenopathy, she is a former smoker but quit many years ago when she was 28
- Patient has already followed up with her usual oncologist [facility], continue outpatient follow-up
Chronic steroid-dependent:
- On low-dose prednisone 2.5 mg [facility]
- Continue higher dose of prednisone 22.5 mg for several days for possible adrenal insufficiency induced hyponatremia
Temporal arteritis:
- Chronic she is on methotrexate and prednisone as above; methotrexate been on hold for the last couple of weeks.
Concern for Parkinson disease:
- Patient experiencing tremor, shuffling gait and has cogwheel rigidity
- Seen by neurology, who started her on thiamine
Hyperkalemia:
- Resolved
DVT prophylaxis�Xarelto
Full code
Dispo - From [facility], does not want to return to rehab, wants to go home with therapy services
Updated daughter at bedside 03/18
Total time spent to see the patient on the floor, examine the patient, review data and lab results, discuss treatment plan with patient, nursing staff around 50 minutes.
Physical Exam
General: No acute distress
HEENT: Normocephalic, Atraumatic, EOMI, MMM
Respiratory: Clear to Auscultation bilaterally
Cardiac: Normal S1/S2, Regular Rate and Rhythm
GI: Soft, Nontender, Nondistended, Normal Bowel Sounds
Extremities: No Clubbing, Cyanosis, or Edema
Neuro: Nonfocal/Grossly Intact
Psych: Calm, Cooperative
Derm: No Visible lesions
Anticipated Discharge: > 48 hours
Subjective/Interval History
-
Date of Service: March 18, 2025
Patient denies shortness of breath. She complains of headache and cough. No lightheadedness, no dizziness. No chest pain. No fever, no vomiting.
Objective Data
-
Labs:
Laboratory Results
03/18/25
10:57
WBC 3.4 L
Hgb 10.9 L
Hct 32.3 L
Plt Count 325
Sodium 127 L
Potassium 4.8
Chloride 100
Carbon Dioxide 21 L
BUN 12
Creatinine 0.6
Glucose 128 H
Calcium 8.6
Vital Signs:
Vital Signs
Temp Pulse Resp BP Pulse Ox
98.3 F 89 18 126/68 98
03/18/25 15:16 03/18/25 15:16 03/18/25 15:16 03/18/25 15:16 03/18/25 15:16
I&O
03/17/25 03/18/25 03/19/25
06:59 06:59 06:59
Intake Total 720 / 720
Balance 720 / 720
[2025-03-18] MEDS: VITAMIN B1 100 MG PO (10:15)
--- NOTE | 2025-03-18 10:54 | CM ---
CM reviewed chart, patient seen bedside, initial assessment completed. Patient is a 80 year old female with a history of atrial fibrillation, PE on Xarelto, PMR, temporal arteritis, and diverticulosis presenting with her daughters for evaluation
after a possible seizure today.
Patient reports she was in [facility], does not want to return to rehab, wants to go home with therapy services. PT has been consulted, will follow for recommendations. Prior to rehab, patient resides independently in a multiple level private home,
two steps to enter. Patient reports having a walker at home, does not typically use it, was using walker in rehab. Patient reports she has five children who are local. PCP Dr Jones, Pharmacy [facility], confirms prescription coverage. Patient
denies insecurities at home. CM will continue to follow for all discharge planning needs.
Plan; PT consulted, patient prefers home therapy (unsure agency she has worked with in past), does not want to return to SNF
[2025-03-18 11:17] VITALS: BP 117/68
--- NOTE | 2025-03-18 11:23 | EEG.RPT ---
Electroencephalogram Report
Recording
Date of EE03/18/25
Type of EEG: Routine
Length of EEG recordin minutes
Done with Video Recording: Yes
Patient Status: Inpatient
Recording Conditions: Awake, Drowsy and Asleep
Hyperventilation Performed: No
Photic Stimulation Performed: Yes
Report
LESS THAN 1 HOUR EEG REPORT
LESS THAN 1 HOUR EEG INTERPRETATION:
Likely unremarkable EEG for age
CLINICAL CORRELATION:
Although normative values not been established for a person of this advanced age, the patient�s symmetry of the background suggests that this study was unremarkable.
A normal EEG does not rule out a diagnosis of epilepsy. If clinical suspicion for seizure persists, a prolonged recording may be warranted.
Clinical correlation is advised.
METHODS:
A 21 channel digitized electroencephalogram (EEG) was performed using the 10/20 international system of electrode placement and one-lead of ECG recorded. The Foruforever quantitative review system was utilized.
ELECTROENCEPHALOGRAPHER IMPRESSION(S):
Quality of study
Good
Background
There was an unremarkable anterior-posterior voltage gradient of alpha frequency.
With eye opening the background activity changed to a low voltage mixture of frequencies.
There were no significant asymmetries of background activity noted.
Sleep
Drowsiness present
Stage I sleep recorded
Stage II sleep recorded
Photic Stimulation
No driving
ECG
Normal sinus rhythm
[2025-03-18 11:25] LABS: Hematocrit 32.3 % (37.0-47.0); Hemoglobin 10.9 g/dL (12.0-16.0); Mean Corp Hgb Conc. 33.7 g/dL (33.0-37.0); Mean Corpuscular Volume 92.8 fL (81.0-99.0); Platelet Count 325 10^3/uL (130-400); Red Cell Dist. Width 15.7 % (11.5-14.5)
[2025-03-18 11:31] LABS: Blood Urea Nitrogen 12 mg/dl (7-17); Calcium 8.6 mg/dl (8.4-10.2); Carbon Dioxide 21 mmol/L (22-30); Chloride 100 mmol/L (98-107); Estimated Creatinine Clearance 68 ml/min; Glucose 128 mg/dl (70-99); Potassium 4.8 mmol/L (3.5-5.1); Sodium 127 mmol/L (135-145); eGFR > 60.00
[2025-03-18 15:16] VITALS: BP 126/68
--- NOTE | 2025-03-18 15:35 | W.CON.NEPH ---
Consultation
-
Date/Time Consultation Requested: 03/18/2025 11 AM
Date/Time Consultation Performed: 03/18/2025 11 AM
Requesting Provider: Dr. De La Paz
Performing Provider: Dr. Phan
Reason for Consultation: Hyponatremia
Medical History
-
Chief Complaint: Hyponatremia
History of Present Illness:
86-year-old female with A-fib and anticoagulated on Xarelto and rate controlled with diltiazem, hypertension on monotherapy regimen, polymyalgia rheumatica on chronic prednisone therapy for 7 years, though on 2.5 mg daily for the last 2 years,
temporal arthritis on chronic methotrexate and steroid. She was recently at [facility] about 2 weeks ago with hypotension. According to the daughter she had received fluid bolus for the hypotension. This had resulted in some
volume overload and then she received Lasix. After her dose of Lasix her sodium level was found to have dropped from normal down to 124. She was kept in the hospital another day where the sodium level had risen slightly at 126 and she was
discharged to rehab. Yesterday her daughter picked her up from the rehab to take her to her supervisor soakers appointment on the way the patient had an apparent seizure event. She remained oriented without confusion after the event. She was brought to
the emergency room and she was admitted. Her sodium was noted to be 124 at that time. The daughter says that she was placed on an 1800 cc fluid restriction though most likely she was drinking far less than that. She reports that no other
treatment was given for the hyponatremia when she was in [facility]. She did have prior blood work from that hospitalization to show, where urine osmolality 452, urine sodium normal range.
Overnight she received saline as well as a dose of Solu-Medrol and her sodium was 127 this morning. Repeat urine osmolality was 214
Past Medical History
A-fib
Hypertension
Polymyalgia rheumatica
Temporal arteritis
Chronic steroid-dependent
Peripheral neuropathy
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
Social History
Tobacco: Former Smoker
Alcohol: Occasional
Family History
Family History: Not Pertinent
Allergies / Home Medications
Allergy/AdvReac Type Severity Reaction Status Date / Time
cortisone Allergy Unknown Verified 03/17/25 16:14
meperidine (From Demerol) Allergy Unknown Verified 03/17/25 16:14
�Medication �Instructions �Recorded �Confirmed �Type
acetaminophen 650 mg 650 mg PO Q12H PRN pain 03/17/25 03/17/25 History
tablet,extended release
calcium 500 mg (as 1 tab PO BID Supplement 03/17/25 03/17/25 History
carbonate)-vitamin D3 3.125 mcg
(125 unit) tablet
diltiazem HCl 120 mg 120 mg PO DAILY Heart 03/17/25 03/17/25 History
tablet,extended release 24 hr Disease/Condition
folic acid 1 mg tablet 1 mg PO DAILY Supplement 03/17/25 03/17/25 History
furosemide 20 mg tablet 20 mg PO DAILY Fluid 03/17/25 03/17/25 History
Retention/Swelling
gabapentin 100 mg capsule 100 mg PO BID neuropathic pain 03/17/25 03/17/25 History
methotrexate sodium (PF) 25 mg/mL 25 mg SC WEEKLY chemo 03/17/25 03/17/25 History
injection solution
pjvnrzcsgawb-Eu-zfja-minerals 18 1 tab PO DAILY Supplement 03/17/25 03/17/25 History
mg-0.4 mg tablet
prednisone 2.5 mg tablet 2.5 mg PO DAILY inflammation 03/17/25 03/17/25 History
rivaroxaban 10 mg tablet (Xarelto) 10 mg PO DAILY Blood Clot 03/17/25 03/17/25 History
Prevention/Tx
Review of Systems
-
No chest pain or shortness of breath, reduced hearing particularly on the left side.
Physical Exam
Vital Signs
Vital Signs
Temp Pulse Resp BP Pulse Ox
98.3 F 89 18 126/68 98
03/18/25 15:16 03/18/25 15:16 03/18/25 15:16 03/18/25 15:16 03/18/25 15:16
Lab Results
WBC 3.4 10^3/uL (4.8-10.8) L 03/18/25 10:57
RBC 3.48 10^6/uL (4.20-5.40) L 03/18/25 10:57
Hgb 10.9 g/dL (12.0-16.0) L 03/18/25 10:57
Hct 32.3 % (37.0-47.0) L 03/18/25 10:57
Plt Count 325 10^3/uL (130-400) 03/18/25 10:57
Sodium 127 mmol/L (135-145) L 03/18/25 10:57
Potassium 4.8 mmol/L (3.5-5.1) 03/18/25 10:57
Chloride 100 mmol/L (98-107) 03/18/25 10:57
Carbon Dioxide 21 mmol/L (22-30) L 03/18/25 10:57
BUN 12 mg/dl (7-17) 03/18/25 10:57
Creatinine 0.6 mg/dL (0.6-1.0) 03/18/25 10:57
eGFR > 60.00 03/18/25 10:57
Glucose 128 mg/dl (70-99) H 03/18/25 10:57
Calcium 8.6 mg/dl (8.4-10.2) 03/18/25 10:57
Albumin 3.5 g/dl (3.5-5.0) 03/17/25 16:20
Laboratory Tests
03/17/25 03/18/25
19:14 10:57
TSH (Reflex) 0.91
Urine Osmolality 214 L
Urine Sodium 54
Physical Exam
Patient is awake alert oriented and in no distress. Mood and affect were pleasant, insight and judgment were good. Pupils are equal round and reactive to light, extraocular movements are intact, sclera were anicteric. Hearing was reduced, ears and
nose are intact. Oropharynx was clear. Neck was supple with trachea midline and no thyromegaly. Heart was regular rate and rhythm without rubs. Lower extremities without edema. Lungs were clear to auscultation bilaterally and with normal
excursion. Abdomen was soft, nontender, with normal active bowel sounds, and no hepatosplenomegaly. Skin was without rash and with normal turgor.
Data Reviewed
-
Radiology: Image Personally Visualized and interpreted (Chest x-ray 03/17/2025 by my reading no acute disease)
MRI: Report Reviewed by me (Brain MRI 03/18/2025 no acute disease)
Medical Tests (Nuc Med, Echo etc): Image Personally Visualized and interpreted (EKG 03/17/2025 by my reading atrial fibrillation rapid ventricular rate)
Labs: Labs Reviewed by me
Old Records: Reviewed
Assessment/Plan
-
Assessment
Seizure episode
Atrial fibrillation
Hyponatremia
Polymyalgia rheumatica, chronic steroid use
Multiple pulmonary nodules followed by outpatient pulmonology
Plan
I discussed with the daughters and patient at length. I am unsure as to the cause of her acute hyponatremia. Previously given her prior urine osmolality there would have been suspicion of excess ADH, likely from a pulmonary process given her
history of pulmonary nodules. However, she has not received Lasix during that timeframe. Now her urine osmolality is low which would be appropriate given her hyponatremia.
Her sodium level has also improved with only saline and Solu-Medrol. There certainly may have been a component of adrenal insufficiency contributing to the hyponatremia though it does not necessarily explain the acute drop of sodium level recently.
We will simply follow BMP for the time being given that the sodium level is improving
I will repeat a urine osmolality again tomorrow
Higher steroids temporarily
IV fluids will be at this time as she is eating
Fluid restriction 1200 cc/day discussed with the patient and daughters
[2025-03-18 19:33] VITALS: BP 119/69
[2025-03-18] MEDS: MELATONIN 5 MG PO (20:57)
[2025-03-19] VITALS (8 sets, daily range): BP systolic 112–136; BP diastolic 62–79; PULSE 86–88; O2SAT 95
[2025-03-19] MEDS: DELTASONE 20 MG PO (07:11)
[2025-03-19] MEDS: FOLVITE 1 MG PO (07:11)
[2025-03-19] MEDS: CARDIZEM CD 180 MG PO (07:11)
[2025-03-19] MEDS: VITAMIN B1 100 MG PO (07:11)
--- NOTE | 2025-03-19 07:26 | W.PN.NEURO.1 ---
Today's Communication / Plan
-
.
Subjective/Objective
Subjective Data
Date of Service: March 19, 2025
Neurology follow-up note.
HPI: This is an 80-year-old right-handed woman who presented to [facility] with a spell cluster.
According to patient's daughter while driving to cardiology appointment she observed her mom staring, with mouth dragging on the left side and her back being rigid. Each spell lasted less than a minute. Following day episode Ms. Pretty was able
to answer questions but experienced visual disturbances, describing seeing a 'kaleidoscope of colors' and a 'mist of colors.' She denies having a headache following the episode, urinary incontinence or tongue injury. She mentions a very slight
headache during the interview.
Ms. Pretty has been struggling with insomnia for a couple of years. She reports going to bed exhausted, sleeping for about 2 hours, then waking up to play a game of Scrabble before returning to bed and sleeping until about 6 AM. She frequently
gets up to use the bathroom during the night. The patient was given 5 mg of melatonin in the hospital to help with sleep, but it was ineffective. She mentions having good sleep one night when given Xanax.
Ms. Pretty mentions a history of migraines when she was younger, but states they ceased after menopause.
ER VS: 125/76, 118�131, afebrile
EKG: A-fib
PDMP: none
Labs: Glucose�102, sodium�124, magnesium�1.9, normal CK and TSH.
Brain MRI without mariposa-mild age-related parenchymal atrophy. T2/FLAIR hyperintense signal in the white matter of the bilateral cerebral hemispheres, most compatible with moderate chronic microangiopathic ischemia.
Routine EEG(03/18/2025) no epileptiform abnormalities.
PMH: A-fib, polymyalgia rheumatica, HTN, insomnia
PSH: Left nephrectomy for donor purposes, bilateral cataract surgery
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
FH:- Father: at age 86
- Mother: at age 71 from colon cancer
All: Demerol, cortisone
ROS: General: Positive for fatigue.
HEENT: Positive for slight headache, full feeling in ears. Negative for ear pain, buzzing.
Genitourinary: Positive for frequent urination at night.
Neurological: Positive for seizures, visual disturbances.
Musculoskeletal: Positive for limited range of motion in right shoulder.
General: Well developed. In no acute distress.
Cardio: Regular rate and rhythm without murmur. Extremities are without cyanosis or edema.
Neuro:
Mental Status: Alert, oriented to person, place, and date. Mildly impaired attention and comprehension partially due to hearing impairment.. Good fund of knowledge. Follows complex requests across the midline. Comprehension, naming, and
repetition intact.
Cranial Nerves: Pupils are equally round, surgical. EOMs full. Visual azar full to confrontation. No ptosis. No nystagmus. V1-V3 intact to light touch and pinprick bilaterally, symmetric. Face symmetric. Poor hearing AU. Warren lateralizes
to the right the palate elevated well. SCMs and traps 5/5. Tongue midline. No dysarthria. Mild hypophonia
Motor: Normal bulk and tone. No pronator or arm drift. Strength 5/5 throughout. No clonus.
Reflexes: Bilateral grasp
Sensory: Normal vibration at the toes
Coordination: Mild left greater than right action hand tremor
Gait: deferred
Assessment and Plan:
I. 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
II. Chronic insomnia
III. Mild hyponatremia
IV. Mild encephalopathy
V. BL SNHL
. AP AFib
-Seizure precautions.
-Sleep hygiene.
-Avoid medications known to lower seizure threshold.
-No indication for AED at this time.
-Outpatient cEEG.
-OP cognitive behavioral therapy for insomnia.
- May consider short-term treatment with Zolpidem.
-No driving for 6 months.
-OP ENT follow-up
-Outpatient neurology follow-up.
- The case was discussed with patient's daughter. All questions were answered
I personally reviewed all radiology and labs along with past medical records pertinent to current medical problems. Total time spent in patient care is 50 minutes.
Thank you for allowing us to participate in the care of this patient. We will continue to follow. Please do not hesitate to contact us with any questions or concerns.
Objective Data
Vital Signs
Temp Pulse Resp BP Pulse Ox
36.7 C 99 18 112/75 96
03/19/25 07:13 03/19/25 07:13 03/19/25 07:13 03/19/25 07:13 03/19/25 07:13
Lab Results
03/18/25 10:57
Sodium 127 mmol/L (135-145) L 03/18/25 10:57
Potassium 4.8 mmol/L (3.5-5.1) 03/18/25 10:57
BUN 12 mg/dl (7-17) 03/18/25 10:57
Glucose 128 mg/dl (70-99) H 03/18/25 10:57
Calcium 8.6 mg/dl (8.4-10.2) 03/18/25 10:57
Patient Allergies
cortisone Allergy (Verified 03/17/25 16:14)
Unknown
meperidine (From Demerol) Allergy (Verified 03/17/25 16:14)
Unknown
Vital Signs and Labs
-
Vital Signs and Labs:
Vital Signs
Temp Pulse Resp BP Pulse Ox
36.7 C 99 18 112/75 96
03/19/25 07:13 03/19/25 07:13 03/19/25 07:13 03/19/25 07:13 03/19/25 07:13
Lab Results
03/18/25 10:57
03/19/25 06:30
Sodium 133 mmol/L (135-145) L 03/19/25 06:30
Potassium 4.5 mmol/L (3.5-5.1) 03/19/25 06:30
BUN 20 mg/dl (7-17) H 03/19/25 06:30
Glucose 98 mg/dl (70-99) 03/19/25 06:30
Calcium 8.9 mg/dl (8.4-10.2) 03/19/25 06:30
Medications
-
Medications:
Generic Name Dose Route Start Last Admin
Trade Name Freq PRN Reason Stop Dose Admin
Acetaminophen 650 mg 03/17/25 21:16
Acetaminophen 325 Mg Tablet PO 04/14/25 21:15
Q4HPRN PRN
mild pain/HILARIO/temp> 100.4F
Diltiazem HCl 180 mg 03/18/25 08:00 03/19/25 07:11
Diltiazem 180 Mg Extended Release (24 H) Capsule PO 04/15/25 07:59 180 mg
DAILY LOU Administration
Folic Acid 1 mg 03/18/25 08:00 03/19/25 07:11
Folic Acid 1 Mg Tablet PO 04/15/25 07:59 1 mg
DAILY LOU Administration
Melatonin 5 mg 03/18/25 20:00 03/18/25 20:57
Melatonin 5 Mg Tablet PO 04/15/25 19:59 5 mg
DAILY@2000 LOU Administration
Prednisone 2.5 mg 03/20/25 08:00
Prednisone 2.5 Mg Tablet PO 04/17/25 07:59
DAILY LOU
Rivaroxaban 20 mg 03/19/25 18:00
Rivaroxaban 20 Mg Tablet PO 04/16/25 17:59
QPM LOU
Sodium Chloride 0 flush 03/17/25 21:00
Sodium Chloride 0.9% (Flush) Syringe IV 04/14/25 20:59
PER PROTOCOL LOU
Thiamine HCl 100 mg 03/18/25 09:00 03/19/25 07:11
Thiamine 100 Mg Tablet PO 03/20/25 08:01 100 mg
DAILY LOU Administration
Home Medications
-
Home Medications
acetaminophen 650 mg tablet,extended release 650 mg PO Q12H PRN pain 03/17/25
calcium 500 mg (as carbonate)-vitamin D3 3.125 mcg (125 unit) tablet 1 tab PO BID Supplement 03/17/25
diltiazem HCl 120 mg tablet,extended release 24 hr 120 mg PO DAILY Heart Disease/Condition 03/17/25
folic acid 1 mg tablet 1 mg PO DAILY Supplement 03/17/25
furosemide 20 mg tablet 20 mg PO DAILY Fluid Retention/Swelling 03/17/25
gabapentin 100 mg capsule 100 mg PO BID neuropathic pain 03/17/25
methotrexate sodium (PF) 25 mg/mL injection solution 25 mg SC WEEKLY chemo 03/17/25
pzbldkwegear-Ft-vvck-minerals 18 mg-0.4 mg tablet 1 tab PO DAILY Supplement 03/17/25
prednisone 2.5 mg tablet 2.5 mg PO DAILY inflammation 03/17/25
rivaroxaban 10 mg tablet (Xarelto) 10 mg PO DAILY Blood Clot Prevention/Tx 03/17/25
--- NOTE | 2025-03-19 09:03 | W.PN.HOSP.TC ---
Today's Communication/Plan
-
see bold
Assessment / Plan
Assessment / Plan
HPI: 86-year-old female with history of A-fib, brought to the hospital per recommendation of the associate buyer today after had couple episode of loss of consciousness and some body stiffening but no tonic-clonic activity witnessed by daughter.
Seizure can be a possibility while tacky bradycardia arrhythmia with A-fib need to be considered regarding cerebral hypoperfusion, also she is hyponatremic sodium is 124 but she has been low around 125-129 lately.
Loss of consciousness and seizure-like activity:
- Seizure need to be considered but she was not postictal she is right away woke up and back to her baseline, therefore cardiac arrhythmia especially with known history of A-fib and she was mildly tachycardic need to be consider.
- Cardiology neurology following, brain MRI negative for intracranial abnormality, EEG neg for seizures
- Neurology suspects that seizure episode could be due to lack of sleep in conjunction with hyponatremia
- Discussed with neurology, no antiepileptic needed, continue to monitor
- No driving for 6 months.
A-fib with RVR:
- TSH normal
- Appreciate cardiology input, continue increased dose of Cardizem 180 mg daily, uptitrate as needed
- Continue Xarelto, dose increased to 20 mg every afternoon
Hyponatremia:
- Per daughter, this is new, but patient's portal sodium has been 125-129.
- Appreciate nephrology input, who suspects hyponatremia may be due to steroid deficiency
- Recommends high-dose steroids temporarily, she is getting prednisone 22.5 mg as opposed to her usual 2.5 mg
- Sodium 133 today, was 127, was 124 upon admission
- Fluid restriction, await repeat urine osmolality, trend Na
Multiple pulmonary lesion and nodule:
- As discussed with the daughter, concerning for malignancy specially with lymphadenopathy, she is a former smoker but quit many years ago when she was 28
- Patient has already followed up with her usual oncologist PRICING ANALYST, continue outpatient follow-up
Chronic steroid-dependent:
- On low-dose prednisone 2.5 mg PRICING ANALYST
- Continue higher dose of prednisone 22.5 mg for several days for possible adrenal insufficiency induced hyponatremia
Temporal arteritis:
- Chronic she is on methotrexate and prednisone as above; methotrexate been on hold for the last couple of weeks.
Concern for Parkinson disease:
- Patient experiencing tremor, shuffling gait and has cogwheel rigidity
- Seen by neurology, who started her on thiamine
- Patient needs outpatient follow-up with neurology
Hyperkalemia:
- Resolved
Insomnia:
- Sleep hygiene, melatonin, outpatient cognitive behavioral therapy
DVT prophylaxis�Xarelto
Full code
Dispo - From [facility], does not want to return to rehab, wants to go home with therapy services
Updated daughter at bedside 03/19
Total time spent to see the patient on the floor, examine the patient, review data and lab results, discuss treatment plan with patient, nursing staff around 51 minutes.
Physical Exam
General: No acute distress
HEENT: Normocephalic, Atraumatic, EOMI, MMM
Respiratory: Clear to Auscultation bilaterally
Cardiac: Normal S1/S2, Regular Rate and Rhythm
GI: Soft, Nontender, Nondistended, Normal Bowel Sounds
Extremities: No Clubbing, Cyanosis, or Edema
Neuro: Nonfocal/Grossly Intact
Psych: Calm, Cooperative
Derm: No Visible lesions
Anticipated Discharge: 24 - 48 hours
Subjective/Interval History
-
Date of Service: March 19, 2025
Objective Data
-
Labs:
Laboratory Results
03/19/25
06:30
Sodium Pending
Potassium Pending
Chloride Pending
Carbon Dioxide Pending
BUN Pending
Creatinine Pending
Glucose Pending
Calcium Pending
Vital Signs:
Vital Signs
Temp Pulse Resp BP Pulse Ox
98.0 F 99 18 112/75 96
03/19/25 07:13 03/19/25 07:13 03/19/25 07:13 03/19/25 07:13 03/19/25 07:13
I&O
03/18/25 03/19/25 03/20/25
06:59 06:59 06:59
Intake Total 720 / 720 620 / 620
Balance 720 / 720 620 / 620
[2025-03-19 09:05] LABS: Blood Urea Nitrogen 20 mg/dl (7-17); Calcium 8.9 mg/dl (8.4-10.2); Carbon Dioxide 25 mmol/L (22-30); Chloride 104 mmol/L (98-107); Estimated Creatinine Clearance 58 ml/min; Glucose 98 mg/dl (70-99); Potassium 4.5 mmol/L (3.5-5.1); Sodium 133 mmol/L (135-145); eGFR > 60.00
--- NOTE | 2025-03-19 13:22 | W.PN.NEPH.PH ---
Today's Communication / Plan
-
follow BMP
Assessment/Plan
-
Assessment
Seizure episode
Atrial fibrillation
Hyponatremia
Polymyalgia rheumatica, chronic steroid use
Multiple pulmonary nodules followed by outpatient pulmonology
Plan
follow BMP
FR continues
await repeat Uosm
I suspect there was a component of steroid deficiency driving hyponatremia that improved with solumedrol
-
-
Date of Service: March 19, 2025
CC / HPI / ROS
-
Chief Complaint:
hyponatremia
History of Present Illness:
Na up to 133
BPs stable
eating better
Review of Systems:
feels better
no CP/SOB
Labs
-
Labs:
WBC 3.4 10^3/uL (4.8-10.8) L 03/18/25 10:57
RBC 3.48 10^6/uL (4.20-5.40) L 03/18/25 10:57
Hgb 10.9 g/dL (12.0-16.0) L 03/18/25 10:57
Hct 32.3 % (37.0-47.0) L 03/18/25 10:57
Plt Count 325 10^3/uL (130-400) 03/18/25 10:57
Sodium 133 mmol/L (135-145) L 03/19/25 06:30
Potassium 4.5 mmol/L (3.5-5.1) 03/19/25 06:30
Chloride 104 mmol/L (98-107) 03/19/25 06:30
Carbon Dioxide 25 mmol/L (22-30) 03/19/25 06:30
BUN 20 mg/dl (7-17) H 03/19/25 06:30
Creatinine 0.7 mg/dL (0.6-1.0) 03/19/25 06:30
eGFR > 60.00 03/19/25 06:30
Glucose 98 mg/dl (70-99) 03/19/25 06:30
Calcium 8.9 mg/dl (8.4-10.2) 03/19/25 06:30
Albumin 3.5 g/dl (3.5-5.0) 03/17/25 16:20
Physical Exam
-
Vital Signs:
Vital Signs
Temp Pulse Resp BP Pulse Ox
98.2 F 89 18 119/68 97
03/19/25 11:00 03/19/25 11:00 03/19/25 11:00 03/19/25 11:00 03/19/25 11:00
Cardiovascular:: Regular rate and rhythm
Respiratory:: Bilateral: Coarse
Lung Excursion:: Normal
Abdomen:: Nontender and Soft
Bowel Sounds:: Normal
Extremity Edema:: None: Bilateral:
--- NOTE | 2025-03-19 16:19 | W.PN.UPDATE ---
Update Note
Progress Note Update
Patient was receiving care by other consultants during 2 attempts to see. Chart/telemetry reviewed. Patient remains in rate controlled atrial fibrillation. Blood pressure stable. Lab work reviewed with improved sodium now 133. Normal renal
function. Normal potassium. Patient now on guideline recommended dose of Xarelto for stroke risk reduction in A-fib; also has complex hypercoagulable state followed by outpatient hematology with prior PE/DVT. Seizure evaluation as per neurology.
Nephrology following for hyponatremia. No new recommendations as of today.
Patient should follow-up with her usual outpatient concierge receptionist following discharge.
Continue Xarelto 20 mg once daily
Continue diltiazem CD1 180 mg once daily.
Will sign off, recall if needed
[2025-03-19] MEDS: XARELTO 20 MG PO (17:02)
[2025-03-19] MEDS: MELATONIN 10 MG PO (22:12)
[2025-03-20 03:04] VITALS: BP 138/70
[2025-03-20 07:00] VITALS: BP 130/82
[2025-03-20 07:31] LABS: Blood Urea Nitrogen 22 mg/dl (7-17); Calcium 8.8 mg/dl (8.4-10.2); Carbon Dioxide 25 mmol/L (22-30); Chloride 105 mmol/L (98-107); Estimated Creatinine Clearance 58 ml/min; Glucose 86 mg/dl (70-99); Potassium 4.5 mmol/L (3.5-5.1); Sodium 135 mmol/L (135-145); eGFR > 60.00
[2025-03-20] MEDS: CARDIZEM CD 180 MG PO (09:05)
[2025-03-20] MEDS: DELTASONE 2.5 MG PO (09:05)
[2025-03-20] MEDS: FOLVITE 1 MG PO (09:06)
[2025-03-20] MEDS: VITAMIN B1 100 MG PO (09:06)
[2025-03-20] MEDS: DELTASONE 10 MG PO (09:06)
--- NOTE | 2025-03-20 09:12 | W.PN.HOSP.TC ---
Today's Communication/Plan
-
Discharge today
Assessment / Plan
Assessment / Plan
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
Seizure can be a possibility while tacky bradycardia arrhythmia with A-fib need to be considered regarding cerebral hypoperfusion, also she is hyponatremic sodium is 124 but she has been low around 125-129 lately.
Loss of consciousness and seizure-like activity:
- Seizure need to be considered but she was not postictal she is right away woke up and back to her baseline, therefore cardiac arrhythmia especially with known history of A-fib and she was mildly tachycardic need to be consider.
- Cardiology neurology following, brain MRI negative for intracranial abnormality, EEG neg for seizures
- Neurology suspects that seizure episode could be due to lack of sleep in conjunction with hyponatremia
- Discussed with neurology, no antiepileptic needed, continue to monitor
- No driving for 6 months
- Medically stable for discharge today, follow-up with PCP in less than 1 week, and establish care with neurology as well outpatient
A-fib with RVR:
- TSH normal
- Appreciate cardiology input, continue increased dose of Cardizem 180 mg daily, uptitrate as needed
- Continue Xarelto, dose increased to 20 mg every afternoon
Hyponatremia:
- Per daughter, this is new, but patient's portal sodium has been 125-129.
- Appreciate nephrology input, who suspects hyponatremia may be due to steroid deficiency
- Status post increased dose of steroids, resume home dose of prednisone 2.5 mg daily tomorrow
- Sodium 135 today, was 133, 127, was 124 upon admission
- Instructed her that she needs to continue fluid restriction upon discharge
- Nephrology said that she can also resume her home Lasix 20 mg p.o. daily upon discharge
Multiple pulmonary lesion and nodule:
- As discussed with the daughter, concerning for malignancy specially with lymphadenopathy, she is a former smoker but quit many years ago when she was 28
- Patient has already followed up with her usual oncologist WAREHOUSE LABORER, continue outpatient follow-up
Chronic steroid-dependent:
- On low-dose prednisone 2.5 mg WAREHOUSE LABORER
- Status post increased dose of steroids, resume home dose of prednisone 2.5 mg daily tomorrow
Temporal arteritis:
- Chronic she is on methotrexate and prednisone as above; methotrexate been on hold for the last couple of weeks.
Concern for Parkinson disease:
- Patient experiencing tremor, shuffling gait and has cogwheel rigidity
- Seen by neurology, who started her on thiamine
- Patient needs outpatient follow-up with neurology
Hyperkalemia:
- Resolved
Insomnia:
- Sleep hygiene, melatonin, outpatient cognitive behavioral therapy
DVT prophylaxis�Xarelto
Full code
Dispo - From [facility], does not want to return to rehab, wants to go home with therapy services
Updated daughter at bedside 03/19
Updated daughter on phone 03/20
Physical Exam
General: No acute distress
HEENT: Normocephalic, Atraumatic, EOMI, MMM
Respiratory: Clear to Auscultation bilaterally
Cardiac: Normal S1/S2, Regular Rate and Rhythm
GI: Soft, Nontender, Nondistended, Normal Bowel Sounds
Extremities: No Clubbing, Cyanosis, or Edema
Neuro: Nonfocal/Grossly Intact
Psych: Calm, Cooperative
Derm: No Visible lesions
Anticipated Discharge: Today
Subjective/Interval History
-
Date of Service: March 20, 2025
Patient reports feeling stronger. She slept better with the increased dose of melatonin. Denies chest pain, denies shortness of breath. No fever, no vomiting.
Objective Data
-
Labs:
Laboratory Results
03/20/25
06:35
Sodium 135
Potassium 4.5
Chloride 105
Carbon Dioxide 25
BUN 22 H
Creatinine 0.7
Glucose 86
Calcium 8.8
Vital Signs:
Vital Signs
Temp Pulse Resp BP Pulse Ox
98.3 F 98 18 130/82 94
03/20/25 07:00 03/20/25 07:00 03/20/25 07:00 03/20/25 07:00 03/20/25 07:00
I&O
03/19/25 03/20/25 03/21/25
06:59 06:59 06:59
Intake Total 620 / 620 1440 / 1440
Balance 620 / 620 1440 / 1440
[2025-03-20 11:00] VITALS: BP 109/66
--- NOTE | 2025-03-20 11:25 | W.DCSUMMARY ---
Discharge Summary
Discharge Data
Date of Admission: 03/17/25
Date of Discharge: 03/20/25
-
Pending Results: No
Hospital Course
Discharge diagnosis:
Isolated seizure episode
Paroxysmal atrial fibrillation with rapid ventricular response
Hyponatremia
Multiple pulmonary lesions and nodules
Polymyalgia rheumatica on chronic steroid use
Hyperkalemia
Insomnia
Consults: Nephrology, neurology, cardiology
Hospital course:
80-year-old female with a past medical history of atrial fibrillation on Xarelto, polymyalgia rheumatica on chronic steroids, and insomnia was admitted for isolated seizure episode, hyponatremia, and atrial fibrillation with rapid ventricular
response. Patient was seen in conjunction with neurology. Neurology suspects that her sodium of 124 in conjunction with insomnia may have precipitated her seizure. Neurology recommends sleep hygiene, melatonin, no driving, outpatient EEG, and
follow-up with neurology in the office.
Patient was seen in conjunction with nephrology for her hyponatremia. Nephrology suspects that her hyponatremia could be due to adrenal/steroid insufficiency. She received IV Solu-Medrol in the ER, and an increased dose of prednisone for several
days. She was treated with a fluid restriction. Her sodium improved from 124 upon admission, to 135 on the day of discharge. She is counseled to continue a 48 ounce fluid restriction upon discharge.
Patient was seen in conjunction with cardiology. Cardiology increased her Cardizem to 180 mg daily, and Xarelto to 20 mg daily. Her rate became controlled.
Patient is medically stable for discharge. She needs to follow-up with her PCP in 1 week, and establish care with a neurologist for follow-up to obtain outpatient EEG as well.
Disposition: Home with home care
Discharge planning: Required 39 minutes
Discharge Plan
-
Patient Disposition: Home with Home Care
Discharge Diagnosis/Procedures: Seizure episode likely due to low sodium and sleep deprivation, hyponatremia/low sodium likely due to steroid deficiency
Condition: Good
Diet: Restrict fluids to 48 oz
Activity: As tolerated
Blood Work: BMP, CBC in 3 days, lab slip provided
Activity Restrictions/Additional Instructions:
Nephrology says that you can go back on your Lasix.
Cardiology increased your diltiazem to 180 mg daily, and Xarelto to 20 mg daily.
Recommend you establish care and follow-up with neurology.
Please follow-up with your primary care doctor in less than 1 week.
Referrals:
Kevin Jones MD [Family Provider, Internal Medicine] - in less than 1 week
Prescriptions:
New
Xarelto 20 mg Tablet
20 mg PO QPM Qty: 30 0RF
diltiazem HCl 180 mg Capsule,Extended Release 24hr
180 mg PO DAILY Qty: 30 0RF
melatonin 5 mg Tablet
10 mg PO DAILY@2000 Qty: 30 0RF
Continued
acetaminophen 650 mg Tablet Extended Release
650 mg PO Q12H PRN (Reason: pain)
prednisone 2.5 mg Tablet
2.5 mg PO DAILY
folic acid 1 mg Tablet
1 mg PO DAILY
gabapentin 100 mg Capsule
100 mg PO BID
osevzwiipgwp-Lr-jhje-minerals 18-0.4 mg Tablet
1 tab PO DAILY
methotrexate sodium (PF) 25 mg/mL solution
25 mg SC WEEKLY
Rx Instructions:
on hold
calcium carbonate-vitamin D3 500 mg-3.125 mcg (125 unit) Tablet
1 tab PO BID
furosemide 20 mg tablet
20 mg PO DAILY Qty: 30 0RF
Discontinued
diltiazem HCl 120 mg Tablet Extended Release 24 Hr
120 mg PO DAILY
Xarelto 10 mg Tablet
10 mg PO DAILY
Discharge Orders:
Discharge Patient (As Directed); Ordered 03/20/25
Ordered By: Juan Marie
Discharge Date and Time
Discharge Date/Time: 03/20/25 13:21
Print Language: LUX[place]
--- NOTE | 2025-03-20 12:42 | CM ---
Pt discharged to home with VN/OT/PT through [facility]. Choices provided to pt and dtr IMM given and placed on chart.PT will transport home with daughter.
[facility]
--- NOTE | 2025-03-20 12:48 | W.PN.NEPH.PH ---
Today's Communication / Plan
-
follow BMP
Assessment/Plan
-
Assessment
Seizure episode
Atrial fibrillation
Hyponatremia
Polymyalgia rheumatica, chronic steroid use
Multiple pulmonary nodules followed by outpatient pulmonology
Plan
follow BMP
FR continues
will need rheum f/u for halfway steroid determination
-
-
Date of Service: March 20, 2025
CC / HPI / ROS
-
Chief Complaint:
hyponatremia
History of Present Illness:
Na up to 135
BPs stable
eating better
steroid taper
Review of Systems:
feels better
no CP/SOB
Labs
-
Labs:
WBC 3.4 10^3/uL (4.8-10.8) L 03/18/25 10:57
RBC 3.48 10^6/uL (4.20-5.40) L 03/18/25 10:57
Hgb 10.9 g/dL (12.0-16.0) L 03/18/25 10:57
Hct 32.3 % (37.0-47.0) L 03/18/25 10:57
Plt Count 325 10^3/uL (130-400) 03/18/25 10:57
Sodium 135 mmol/L (135-145) 03/20/25 06:35
Potassium 4.5 mmol/L (3.5-5.1) 03/20/25 06:35
Chloride 105 mmol/L (98-107) 03/20/25 06:35
Carbon Dioxide 25 mmol/L (22-30) 03/20/25 06:35
BUN 22 mg/dl (7-17) H 03/20/25 06:35
Creatinine 0.7 mg/dL (0.6-1.0) 03/20/25 06:35
eGFR > 60.00 03/20/25 06:35
Glucose 86 mg/dl (70-99) 03/20/25 06:35
Calcium 8.8 mg/dl (8.4-10.2) 03/20/25 06:35
Albumin 3.5 g/dl (3.5-5.0) 03/17/25 16:20
Physical Exam
-
Vital Signs:
Vital Signs
Temp Pulse Resp BP Pulse Ox
98.5 F 61 18 109/66 95
03/20/25 11:00 03/20/25 11:00 03/20/25 11:00 03/20/25 11:00 03/20/25 11:00
Cardiovascular:: Regular rate and rhythm
Respiratory:: Bilateral: CTA
Lung Excursion:: Normal
Abdomen:: Nontender and Soft
Bowel Sounds:: Normal
Extremity Edema:: None: Bilateral:
== END 2025-03-20 13:21 | disposition home health service (06) | DRG 641 ==
LOC: 4 WEST ACU 20:44
PROVIDERS: Nurse Practitioner Family; Physician Assistant; ADMITTING PHYSICIAN Internal Medicine; ATTENDING PHYSICIAN Family Medicine; CONSULT PHYSICIAN Psychiatry & Neurology Neurology; EMERGENCY PHYSICIAN Emergency Medicine; FAMILY PHYSICIAN Internal Medicine; OTHER PHYSICIAN Internal Medicine Cardiovascular Disease; OTHER PHYSICIAN Specialist
DX: E87.1 Hypo-osmolality and hyponatremia (principal); D68.59 Other primary thrombophilia; I50.32 Chronic diastolic (congestive) heart failure; T38.0X5A Adverse effect of glucocorticoids and synthetic analogues, initial encounter; R56.9 Unspecified convulsions; I95.9 Hypotension, unspecified; I48.0 Paroxysmal atrial fibrillation; E87.5 Hyperkalemia; G47.00 Insomnia, unspecified; M31.5 Giant cell arteritis with polymyalgia rheumatica; M40.204 Unspecified kyphosis, thoracic region; G62.9 Polyneuropathy, unspecified; R91.8 Other nonspecific abnormal finding of lung field; D72.819 Decreased white blood cell count, unspecified; E86.0 Dehydration; I49.3 Ventricular premature depolarization; I05.1 Rheumatic mitral insufficiency; I11.0 Hypertensive heart disease with heart failure; Z79.52 Long term (current) use of systemic steroids; Z79.899 Other long term (current) drug therapy; Z87.891 Personal history of nicotine dependence; Z90.5 Acquired absence of kidney
CPT/HCPCS: 70450; 70553; 71046; 80048; 80053; 81003; 81015; 82550; 83735; 83930; 83935; 84300; 84443; 84484; 85025; 85027; 93005; 95816; 97162; 97166; 97530; 99285

== ENCOUNTER 2025-04-26 16:13 | Emergency (ER) | payer MEDICARE, OTHER, SELFPAY ==
[2025-04-26 16:14] VITALS: BP 139/76
[2025-04-26 16:42] LABS: Hematocrit 39.3 % (37.0-47.0); Hemoglobin 12.5 g/dL (12.0-16.0); Mean Corp Hgb Conc. 31.8 g/dL (33.0-37.0); Mean Corpuscular Volume 101.8 fL (81.0-99.0); Nucleated Red Blood Cells % 0 %; Platelet Count 222 10^3/uL (130-400); Red Cell Dist. Width 14.4 % (11.5-14.5)
[2025-04-26 16:49] LABS: ALT (SGPT) 17 U/L (0-35); AST (SGOT) 25 U/L (14-36); Albumin 4.2 g/dl (3.5-5.0); Alkaline Phosphatase 89 U/L (38-126); Blood Urea Nitrogen 27 mg/dl (7-17); Calcium 9.2 mg/dl (8.4-10.2); Carbon Dioxide 23 mmol/L (22-30); Chloride 105 mmol/L (98-107); Glucose 193 mg/dl (70-99); Potassium 4.0 mmol/L (3.5-5.1); Sodium 134 mmol/L (135-145); Total Protein 8.5 g/dl (6.3-8.2); eGFR > 60.00
== END 2025-04-26 20:18 | disposition left against medical advice (07) ==
LOC: EMR 16:13
PROVIDERS: EMERGENCY PHYSICIAN Student in an Organized Health Care Education/Training Program
DX: R42 Dizziness and giddiness (principal); Z53.21 Procedure and treatment not carried out due to patient leaving prior to being seen by health care provider
CPT/HCPCS: 80053; 85025; 93005